=== PATIENT | female | born 2000 | race Hispanic/Latino ===

== ENCOUNTER 2024-05-14 16:05 | Inpatient (IN) | payer OTHER ==
[2024-05-15] MEDS ORDERED: LACTATED RINGER'S 1,000 ML IV SCH (00:30)
[2024-05-15] MEDS ORDERED: LACTATED RINGER'S 1,000 ML IV PRN (00:30)
[2024-05-15] MEDS ORDERED: CALCIUM CARBONATE 500 MG CHEW PO PRN ×2 (00:30→19:30)
[2024-05-15] MEDS ORDERED: miSOPROStoL 25 MCG TAB PV SCH (00:30)
[2024-05-15] MEDS ORDERED: OXYTOCIN/DEXTROSE 5% 20 UNITS/100 ML BAG IV SCH (00:30)
[2024-05-15] MEDS ORDERED: MAGNESIUM HYDROXIDE/AL HYDROX 30 ML CUP PO PRN ×2 (00:30→19:30)
[2024-05-15 01:49] LABS: HEMATOCRIT 36.3 % (35.0-50.0); HEMOGLOBIN 12.6 g/dL (12.0-18.0); MCH 32.5 (27-36); MCHC 34.6 g/dl (30-36); MCV 93.8 fl (81-99); RBC 3.87 M/ul (4.3-5.7); RDW 13.5 (10.5-15.0)
[2024-05-15 02:19] LABS: AMPHETAMINES, UR NEGATIVE (NEGATIVE); BARBITURATES, UR NEGATIVE (NEGATIVE); BENZODIAZEPINES, UR NEGATIVE (NEGATIVE); COCAINE, UR NEGATIVE (NEGATIVE); MARIJUANA (THC), UR NEGATIVE (NEGATIVE); PHENCYCLIDINE, UR NEGATIVE (NEGATIVE); TRICYCLIC ANTIDEPRESSANT, UR NEGATIVE (NEGATIVE)
[2024-05-15 02:20] LABS: BUPRENORPHINE,UR NEGATIVE (NEGATIVE); MDMA, UR NEGATIVE (NEGATIVE); METHADONE, UR NEGATIVE (NEGATIVE); METHAMPHETAMINE, UR NEGATIVE (NEGATIVE); OPIATES, UR NEGATIVE (NEGATIVE); OXYCODONE, UR NEGATIVE (NEGATIVE)
[2024-05-15 02:22] LABS: ABO AB
[2024-05-15 02:23] LABS: ANTIBODY SCREEN NEGATIVE; RH POSITIVE
[2024-05-15] MEDS ORDERED: LEVOTHYROXINE50 MC1 PO (03:31)
[2024-05-15] MEDS ORDERED: ondansetron HCL 4 MG/2 ML VIAL ONE (06:01)
[2024-05-15] MEDS ORDERED: ondansetron HCL 4 MG/2 ML VIAL IV ONE (06:15)
[2024-05-15] MEDS ORDERED: TERBUTALINE SULFATE 1 MG/ML AMP SUB-Q ONE (06:15)
[2024-05-15] MEDS ORDERED: ROPIVACAINE 0.2% 200 ML BAG ONE (08:47)
[2024-05-15] MEDS ORDERED: BUPIVACAINE HCL 0.25% 10 ML SDV INJ ONE (08:48)
[2024-05-15] MEDS ORDERED: LIDOCAINE HCL 2% 5 ML SDV ONE (08:48)
[2024-05-15] MEDS ORDERED: LACTATED RINGER'S 2,000 ML IV ONE (09:45)
[2024-05-15] MEDS ORDERED: ePHEDrine sulfate 5 MG/ML SYRINGE IV PRN (09:45)
[2024-05-15] MEDS ORDERED: LACTATED RINGER'S 500 ML IV PRN (09:45)
[2024-05-15] MEDS ORDERED: ROPIVACAINE 0.2% 200 ML BAG EPIDURAL SCH ×2 (09:45)
[2024-05-15] MEDS ORDERED: ondansetron HCL 4 MG/2 ML VIAL IV PRN (16:15)
[2024-05-15] MEDS ORDERED: MAGNESIUM HYDROXIDE 30 ML UDC PO PRN (19:30)
[2024-05-15] MEDS ORDERED: BENZOCAINE 60 ML AEROSOL TOP PRN (19:30)
[2024-05-15] MEDS ORDERED: OXYTOCIN/0.9 % SODIUM CHLORIDE 500 ML IV SCH (19:30)
[2024-05-15] MEDS ORDERED: ACETAMINOPHEN 325 MG TAB PO PRN (19:30)
[2024-05-15] MEDS ORDERED: IBUPROFEN 600 MG TAB PO PRN (19:30)
[2024-05-15] MEDS ORDERED: HYDROCORTISONE ACETATE 25 MG SUPP PR PRN (19:30)
[2024-05-15] MEDS ORDERED: WITCH HAZEL/GLYCERIN 1 EA PAD TOP PRN (19:30)
[2024-05-15] MEDS ORDERED: SENNOSIDES/DOCUSATE 1 EA TAB PO SCH (21:00)
[2024-05-16] MEDS ORDERED: LEVOTHYROXINE SODIUM 50 MCG TAB PO SCH ×2 (06:00→07:00)
[2024-05-16] MEDS ORDERED: LACTATED RINGER'S 1,000 ML IV ONE (07:15)
== END 2024-05-17 16:45 | disposition home or self-care (01) | DRG 807 ==
LOC: FBC 05-15 00:17
PROVIDERS: ADMIT Obstetrics & Gynecology; ATTEND Obstetrics & Gynecology
PROC: 10E0XZZ Delivery of Products of Conception, External Approach (ICD-10-PCS; principal; 2024-05-15)
PROC: 0KQM0ZZ Repair Perineum Muscle, Open Approach (ICD-10-PCS; 2024-05-15)
PROC: 3E0R3BZ Introduction of Anesthetic Agent into Spinal Canal, Percutaneous Approach (ICD-10-PCS; 2024-05-15)
PROC: 00HU33Z Insertion of Infusion Device into Spinal Canal, Percutaneous Approach (ICD-10-PCS; 2024-05-15)
PROC: 10907ZC Drainage of Amniotic Fluid, Therapeutic from Products of Conception, Via Natural or Artificial Opening (ICD-10-PCS; 2024-05-15)
PROC: 3E0DXGC Introduction of Other Therapeutic Substance into Mouth and Pharynx, External Approach (ICD-10-PCS; 2024-05-15)
DX: O48.0 Post-term pregnancy (principal); Z37.0 Single live birth; O77.0 Labor and delivery complicated by meconium in amniotic fluid; O70.1 Second degree perineal laceration during delivery; Z3A.41 41 weeks gestation of pregnancy; O99.214 Obesity complicating childbirth; O99.284 Endocrine, nutritional and metabolic diseases complicating childbirth; E03.9 Hypothyroidism, unspecified; Z79.890 Hormone replacement therapy; R33.9 Retention of urine, unspecified; O90.89 Other complications of the puerperium, not elsewhere classified
CPT/HCPCS: 01960; 36415; 80307; 85027; 86850; 86900; 86901; A9270; J2003; J2405; J2590; J3105; J7121